=== PATIENT | female | born 1995 | race Caucasian/White ===

== ENCOUNTER 2023-12-04 16:29 | Emergency (ER) | payer OTHER ==
[~2023-12-04] VITALS: Ht 154.9 cm; Wt 59.1 kg
[2023-12-04 16:36] VITALS: TEMP 98.5
[2023-12-04] MEDS ORDERED: NS 1,000 ML IV ONE (17:00)
[2023-12-04] MEDS ORDERED: Ondansetron 4 MG/2 ML VIAL IV ONE (17:00)
[2023-12-04 17:29] LABS: BASO % 0.5 % (0.0-2.0); EOS # 0.3 K/mm3 (0.0-0.7); EOS % 3.4 % (0.0-4.0); GRAN # 4.6 K/mm3 (1.4-6.5); GRAN % 57.6 % (42.2-75.2); HEMOGLOBIN 11.8 g/dl (12.5-16.0); LYMPH # 2.4 K/mm3 (1.2-3.4); LYMPH % 29.4 % (20.0-51.0); MEAN CELL VOLUME 90 fl (80.0-100.0); MEAN CORPUSCULAR HEMOGLOBIN 30 pg (27-31); MEAN CORPUSCULAR HGB CONC 34 g/dl (33.0-37.0); MEAN PLATELET VOLUME 12.4 fl (7.4-10.4); MONO # 0.7 K/mm3 (0.1-0.6); MONO % 8.9 % (1.7-9.3); PLATELET COUNT 232 K/mm3 (130-400); RED BLOOD COUNT 3.92 M/mm3 (4.10-5.30); REDCELL DISTRIBUTION WIDTH-CV 12.8 % (11.5-14.5)
[2023-12-04 17:34] LABS: ALBUMIN 3.6 g/dL (3.5-5.0); BILIRUBIN,TOTAL 0.7 mg/dL (0.2-1.2); CALCIUM 9.3 mg/dL (8.4-10.2); CREATININE, serum 0.61 mg/dL (0.57-1.11); HEMATOCRIT 35.2 % (37.0-47.0); POTASSIUM 4.3 mEq/L (3.5-4.5); TOTAL PROTEIN 7.6 g/dl (6.2-8.1)
[2023-12-04] MEDS ORDERED: Promethazine 25 MG TAB PO ONE (18:15)
[2023-12-04] MEDS ORDERED: Home Ondansetron ODT 4 MG #2 ODT/PACK PO ONE (18:15)
[2023-12-04] MEDS ORDERED: PHENERGAN 25 TA25 MG PO (18:38)
[2023-12-04] MEDS ORDERED: ZOFRAN ODT4 MG PO (18:38)
[2023-12-04 18:45] VITALS: BP 106/78; PULSE 70
== END 2023-12-04 18:45 | disposition home or self-care (01) ==
LOC: COL.ER 16:29
PROVIDERS: Emergency Medicine
DX: O21.9 Vomiting of pregnancy, unspecified (principal); Z3A.01 Less than 8 weeks gestation of pregnancy
CPT/HCPCS: J2405; J7030